=== PATIENT | female | born 2000 | race Caucasian/White ===

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

== ENCOUNTER 2021-07-22 04:36 | Inpatient (IN) | payer OTHER ==
[~2021-07-22 04:36] MED LIST: BUTORPHANOL 1 MG/ML INJ IV PRN; CARBOPROST TROME 250 MCG/ML IM PRN; METHYLERGONOVINE 0.2MG/ML AMP IM PRN; OXYTOCIN/LR 20 UNIT/1,000 ML BAG IV SCH; PROMETHAZINE INJ 25 MG/ML AMP IM PRN; Ringers Lactate 1,000 ML IV PRN; Ringers Lactate 1,000 ML IV SCH
--- OUTSIDE RECORDS SUMMARY | 2021-07-22 04:39 | XMS REPORT | Continuity of Care Document ---
:2000 Author Organization [facility] t Address [address] [place] [address] [address]. [address] [place] [address] Care Team Providers Name Role Phone Marialuisa PEREZ Attending Clinician Unavailable Payers Payer Name Policy Type Policy Number Effective Date Expiration Date S feliciano MEDICAID PENDING PENDING 2020 00:00:00 MEDICAID [facility] [id number] 2020 00:00:00 Problems This patient has no known problems. Allergies, Adverse Reactions, Alerts Allergy Allergy Status Severity Reaction(s) Onset Inactive Treating Comm ents Source Name Type Date Date Clinician NO KNOWN Drug Active Univers ALLERGIE Class ity of S [facility] Medications This patient has no known medications. Procedures This patient has no known procedures. Encounters Start End Encounter Admission Attending Care Care Encounter Source Date/Time Date/Time Type Type Clinicians Facility Department ID 2020-04-09 2020-04-09 Outpatient R [facility] [id number] Univers 13:30:00 13:30:[id number] 2020-04-09 Outpatient R [facility] [id number] Univers 13:30:00 13:30:00 ity [facility] 2020-03-26 2020-03-26 Outpatient R [facility] [id number] Univers 07:45:00 07:45:00 ity [facility] 2020-03-26 2020-03-26 Outpatient R CHRIS, [facility] [id number] Univers 07:45:00 07:45:00 MERLYN itbobbi o f [facility] 2020-03-22 2020-03-22 Outpatient R [facility] [id number] Univers 07:45:00 [facility] 2020-03-[facility] 2020-03-22 Outpatient R CHRIS, [facility] [id number] Univers 07:45:00 07:45:00 MERLYN salvador [facility] 2020-03-16 2020-03-16 Outpatient R CHRIS [facility] [id number] Univers 10:00:00 10:00:00 MERLYN [id number] henok salvador [facility] 2020-03-16 2020-03-16 Outpatient R CHRIS [facility] [id number] Univers 09:30:00 09:30:00 MERLYN whiting [facility] Results This patient has no known results.
[2021-07-22 06:19] VITALS: BMI 28.3
[2021-07-22 06:27] LABS: Absolute Lymphocytes (CBC) 2.9 K/uL (0.7-4.9); Basophils % 0.6 % (0-1.3); Hematocrit 35.8 % (36.0-45.0); Lymphocytes % 31.4 % (15.3-44.8); MPV 8.8 fL (7.6-11.3); RBC Red Blood Cell Count 3.78 M/uL (3.86-4.86)
[2021-07-22 06:37] LABS: Urine Appearance SL CLOUDY (Clear); Urine Bilirubin NEGATIVE (Negative); Urine Color YELLOW (Yellow); Urine Glucose NEGATIVE (Negative); Urine Specific Gravity 1.025 (1.005-1.030)
[2021-07-22 06:38] LABS: Urine Blood TRACE (Negative); Urine Protein NEGATIVE (Negative); Urine Urobilinogen 0.2 mg/dL (0.2-1.0)
[2021-07-22 07:11] LABS: Urine Bacteria 20-50 /HPF (<20); Urine RBC <5 /HPF (NONE SEEN)
[2021-07-22] MEDS ORDERED: BUPIVACAINE 0.25% PF 10 ML VIAL IJ PRN (07:36)
[2021-07-22] MEDS ORDERED: FENTANYL CITR 100 MCG/2 ML IV ONE (07:36)
[2021-07-22] MEDS ORDERED: ROPIVACAINE HCL 0.2% 20ML AMP IV ONE (07:36)
--- NOTE | 2021-07-22 07:55 | PREOPHP ---
Date of Admission: 07/22/2021 Rosa Bravo is a 21-year-old, 2, para 1, 39 weeks 1 day, for elective induction. Rh positi ve. Immune to rubella. Negative strep. Negative COVID. Full preadmission counseling about inducti on pros and cons. Family History: Shows a maternal grandmother with lung cancer. Otherwise, noncontributory. Past Medical History: No serious medical illnesses. Past Surgical History: No previous surgeries. Allergies: NO ALLERGIES. Medications: No medications prior to admission other than vitamins and iron. Social History: Does not smoke. Physical Examination: HEENT: Clear. Pupils equal, round, reactive to light and accommodation. Conjunctivae well perfused . No oral, lingual, or buccal lesions. Chest/Lung: Clear. Heart: Without murmurs, thrills, heaves, or rubs. Breasts: Without masses on previous visits. Abdomen: Term size. Extremities: Clear without edema, cyanosis, or clubbing. The patient is 3.5 cm, 50% effaced, -1 station. Rupture of membranes, clear fluid. Labor talk given , probably will be requesting epidural. Anticipate delivery sometime later today. NIKKIE/YENIFER Voice ID: [id number]
[2021-07-22] MEDS ORDERED: ROPIVACAINE HCL 100 ML EP ONE (09:17)
[2021-07-22] MEDS ORDERED: 0.2% ROPIVACAINE (200 MG/100 ML) BAG EP ONE (09:18)
[2021-07-22] MEDS ORDERED: FENTANYL CITR 100 MCG/2 ML ONE (10:41)
[2021-07-22] MEDS ORDERED: LIDOCAINE 1% MPF 30 ML VIAL ONE (11:04)
--- NOTE | 2021-07-22 11:56 | OP ---
Surgeon: Roberto Pepoles MD Procedure In Detail: A 21-year-old, 2, para 1, 39 weeks 1 day, delivered of a 7-pound 10-oun ce male infant, very short second stage, 5 minutes or so. Apgars 9 and 9. No episiotomy. No lacera tion. During the labor, received epidural anesthesia x2, but was really not very effective. Katherine flores delivery of the placenta, which inspected and noted to be intact and normal. Less than 125 cc bloo d loss. Partial nuchal cord noted at time of delivery. Rh positive, immune to rubella, negative str ep, negative COVID. Tolerated all procedures well. Final Diagnoses: Term intrauterine at 39 weeks 1 day, labor induction, vaginal delivery, e pidural anesthesia-in effective. NIKKIE/YENIFER Voice ID: [id number] Report ID: [id number]
[2021-07-22] MEDS ORDERED: Oxycodone HCl/Acetaminophen 1 TAB TAB PO PRN ×2 (14:11→14:13)
[2021-07-22] MEDS ORDERED: IBUPROFEN 600 MG TAB PO PRN (14:11)
[2021-07-22] MEDS ORDERED: Tdap (Diph,Pertuss(Acell),Tet Vac) 0.5 ML SYR IMVAC ONE (14:11)
[2021-07-23 00:15] LABS: RPR (Rapid Plasma Reagin) NON-REACT (NON-REACT)
[2021-07-23] MEDS ORDERED: Tdap (Diph,Pertuss(Acell),Tet Vac) 0.5 ML SYR IMVAC ONE (11:00)
[2021-07-23 13:10] VITALS: BP 111/70; TEMP 98.1
[2021-07-24 13:28] LABS: HBsAG Nonreactive (Nonreactive)
== END 2021-07-23 13:10 | disposition home or self-care (01) | DRG 807 ==
LOC: 2ND-WC 04:36
PROVIDERS: ADMIT Specialist; ATTEND Specialist
PROC: 10E0XZZ Delivery of Products of Conception, External Approach (ICD-10-PCS; principal; 2021-07-22)
PROC: 10907ZC Drainage of Amniotic Fluid, Therapeutic from Products of Conception, Via Natural or Artificial Opening (ICD-10-PCS; 2021-07-22)
DX: O69.81X0 Labor and delivery complicated by cord around neck, without compression, not applicable or unspecified (principal); Z37.0 Single live birth; Z3A.39 39 weeks gestation of pregnancy
CPT/HCPCS: 36415; 81001; 85025; 86592; 86901; 87340; 90471; 90715; J2210; J2590; J2795; J3010; J7120; U0003

== ENCOUNTER 2022-09-15 04:38 | Inpatient (IN) | payer OTHER ==
--- OUTSIDE RECORDS SUMMARY | 2022-09-15 04:41 | XMS REPORT | Continuity of Care Document ---
:2000 Author Organization [facility] t Address [address] Jimenez [address] [place] [address] Care Team Providers Name Role Phone TREE Attending Clinician Unavailable MERLYN PEREZ Attending Clinician Unavailable TERE Admitting Clinician Unavailable Payers Payer Name Policy Type Policy Number Effective Date Expiration Date S feliciano MEDICAID PENDING PENDING 2020 00:00:00 MEDICAID [place] [id number] 2020 00:00:00 Problems This patient has no known problems. Allergies, Adverse Reactions, Alerts Allergy Allergy Status Severity Reaction(s) Onset Inactive Treating Comm ents Source Name Type Date Date Clinician NO KNOWN Drug Active Univers ALLERGIE Class ity of S [facility] Medications This patient has no known medications. Procedures This patient has no known procedures. Encounters Start End Encounter Admission Attending Care Care Encounter Source Date/Time Date/Time Type Type Clinicians Facility Department ID 2022-03-21 2022-03-21 Outpatient MINDI JEFFERY [id number] 00:00:00 00:00:00 HN [id number] da [facility] 2020-04-09 2020-04-09 Outpatient R [facility] [id number] Univers 13:30:00 13:30:00 ity [facility] 2020-03-26 2020-03-26 Outpatient R CHRIS [facility] [id number] Univers 07:45:00 07:45:00 MERLYN alamo [facility] 2020-03-22 2020-03-22 Outpatient R CHRIS [facility] [id number] Univers 07:45:00 07:45:00 MERLYN salvador [facility] 2020-03-16 2020-03-16 Outpatient Lacey PEREZ [facility] [id number] Univers 09:30:00 09:30:00 MERLYN salvador [facility] Results This patient has no known results.
[2022-09-15 05:39] VITALS: BMI 28.1
[2022-09-15 06:07] LABS: Specific Gravity 1.018 (1.005-1.030); Urine Bacteria None Seen /HPF (<20); Urine Bilirubin NEGATIVE (Negative); Urine Blood 2+ (Negative); Urine Clarity Turbid (Clear); Urine Color Light-Yellow (Yellow); Urine Glucose NEGATIVE (Negative); Urine Mucus Slight /HPF (None Seen); Urine Protein TRACE (Negative); Urine Urobilinogen Normal (Normal)
[2022-09-15] MEDS ORDERED: FENTANYL CITR 100 MCG/2 ML IV PRN (06:27)
[2022-09-15] MEDS ORDERED: ROPIVACAINE HCL 0.2% 20ML AMP EP PRN (06:27)
[2022-09-15] MEDS ORDERED: FENTANYL/BUPIVACAINE/NS/PF 200 MCG/100 ML BAG EP PRN (06:27)
[2022-09-15 06:30] LABS: Absolute Lymphocytes (CBC) 2.8 K/uL (0.7-4.9); Lymphocytes % 27.2 % (15.3-44.8); MCV 93.3 fL (80-100); MPV 8.1 fL (7.6-11.3); RBC Red Blood Cell Count 3.65 M/uL (3.86-4.86)
[2022-09-15 07:03] LABS: Hepatitis B surface AG Interp. Nonreactive (Nonreactive)
[2022-09-15] MEDS ORDERED: LIDOCAINE 1% MPF 30 ML VIAL ONE (07:25)
[2022-09-15] MEDS ORDERED: ROPIVACAINE HCL 20 ML ONE (08:14)
--- NOTE | 2022-09-15 08:39 | PREOPHP ---
Date of Admission: 09/15/2022 History Of Present Illness: Rosa Kelley is a 22-year-old, 3, para 2, at 39 weeks and 1 day for induction. Pros and cons of this thoroughly discussed in the office several times prior to admis zoe. Family History: Maternal grandmother with lung cancer. Otherwise family history is noncontributory. Past Medical History: No serious medical illnesses. Past Surgical History: No previous surgeries. Allergies: NO ALLERGIES. Medications: vitamins prior to admission. Social History: Does not smoke. Physical Examination: HEENT: Clear. Pupils are equal, round, reactive to light and accommodation. Conjunctivae well perf used. No oral, lingual, buccal lesions. Chest and Lungs: Clear. Heart: Without murmurs, thrills, heaves, or rubs. Breasts: Without masses on previous visits. Abdomen: Term size. Extremities: Clear without edema, cyanosis, or clubbing. Assessment And Plan: The patient is 4.5, 70% effaced, vertex, -1 station, clear fluid, on rupture of membranes. FHTs normal, reactive. She is Rh positive, immune to rubella, and negative strep. She has had epidurals with her other deliveries. I have told her that she can have an epidural basically any time from this point forward, but right now she wishes to wait. Full labor talk given. Anticipate delivery relatively soon. NIKKIE/YENIFER Voice ID: [id number]
[2022-09-15] MEDS ORDERED: BISACODYL 10 MG RECTAL SUPP RC PRN (09:22)
[2022-09-15] MEDS ORDERED: Oxycodone HCl/Acetaminophen 1 TAB TAB PO PRN ×2 (09:22)
[2022-09-15] MEDS ORDERED: DOCUSATE NA/SENNA CONC 1 TAB PO PRN (09:22)
[2022-09-15] MEDS ORDERED: IBUPROFEN 600 MG TAB PO PRN (09:22)
[2022-09-15] MEDS ORDERED: DIPHENHYDRAMINE 25 MG TAB/CAP PO PRN (09:22)
[2022-09-15] MEDS ORDERED: ACETAMINOPHEN 500 MG TAB PO PRN (09:22)
[2022-09-15] MEDS ORDERED: OXYTOCIN/LR 20 UNIT/1,000 ML BAG IV SCH (10:00)
--- NOTE | 2022-09-15 18:00 | OP ---
Surgeon: Roberto Peoples MD Procedure In Detail: Rosa Bravo is a 22-year-old, 3, para 2, 39 weeks 1 day, followed ant epartum without complications, admitted for induction, 3.5 to 4 cm when first examined this morning, 70% effaced, vertex -1 station. Rupture of membranes, clear fluid. Michelle regularly. Rh posit govind, immune to rubella, negative strep. Progressed rapidly at approximately 5 cm. Requested and rec eived epidural anesthesia. Went to complete within 2 hours or less rupture of membranes. Second sta ge consisted of 1 good set of pushes. She has delivered of a 6-pound 15-ounce female. Harness type cord. No restrictions. Apgars 9 and 9. No episiotomy. No laceration. Seay delivery of the plac enta, which was inspected and noted be heavily calcified, but otherwise normal. Uterus contracted do wn well. Less than 250 cc blood loss. The patient tolerated all procedures well. Final Diagnoses: Term intrauterine 39 weeks 1 day, labor induction, vaginal delivery, epid ural anesthesia. EMILIOC/MODL Voice ID: [id number] Report ID: [id number]
[2022-09-16 02:07] LABS: RPR (Rapid Plasma Reagin) NON-REACT (NON-REACT)
--- NOTE | 2022-09-16 07:27 | DS ---
Hospital Course: A 22-year-old, 3, para 2, at 39 weeks 1 day, delivered of a 6-pound 15-ounc e female, Apgars 9 and 9, epidural anesthesia. No episiotomy. No lacerations. Seay delivery of t he placenta. Placenta inspected and noted to be intact and normal. Less than 250 cc blood loss. Rh positive, immune to Rubella. Negative strep screen. ; afebrile, ambulating, voiding. Lo jose is normal. No post epidural problems. She is having mild cramping. Full post dismissal instru ctions given. She will see me in the office in 2 weeks instead of the normal 6 because of the hospit al situation. Tdap shot again offered, which has been offered during the as well. Final Diagnoses: Term intrauterine at 39 weeks and 1 day, labor induction, vaginal deliver y, epidural anesthesia. Tdap offered. NIKKIE/YENIFER Voice ID: [id number] Report ID: [id number]
[2022-09-16 07:33] VITALS: BP 104/65; TEMP 97.4
== END 2022-09-16 11:30 | disposition home or self-care (01) | DRG 807 ==
LOC: 2ND-WC 04:38 → EDSTATUS 22:04
PROVIDERS: ADMIT Specialist; ATTEND Specialist
PROC: 10E0XZZ Delivery of Products of Conception, External Approach (ICD-10-PCS; principal; 2022-09-15)
PROC: 10907ZC Drainage of Amniotic Fluid, Therapeutic from Products of Conception, Via Natural or Artificial Opening (ICD-10-PCS; 2022-09-15)
PROC: 3E033VJ Introduction of Other Hormone into Peripheral Vein, Percutaneous Approach (ICD-10-PCS; 2022-09-15)
DX: O80 Encounter for full-term uncomplicated delivery (principal); Z37.0 Single live birth; Z3A.39 39 weeks gestation of pregnancy; Z20.822 Contact with and (suspected) exposure to COVID-19
CPT/HCPCS: 36415; 81001; 85025; 86592; 86901; 87086; 87088; 87340; J2001; J2210; J2590; J3010; J7120; U0003

== ENCOUNTER 2023-06-27 13:45 | Emergency (ER) | payer SELFPAY ==
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
[2023-06-27] MEDS ORDERED: LIDOCAINE 1% MPF 5 ML VIAL ONE (14:24)
--- NOTE | 2023-06-27 15:03 | EDPHYS ---
Physician Documentation [facility] Name: Rosa Bravo Age: 23 yrs Sex: Female : 2000 Arrival Date: 06/27/2023 Time: 13:45 Bed 9 Private MD: ED Physician Duy Rodriguez HPI: 06/27 14:58 This 23 yrs old Female presents to ER via Ambulatory with complaints of Breast Lump. rn 14:58 The patient presents with an abscess of the chest, the patient presents with a swollen rn area of the chest. Description: erythematous, fluctuant, swollen, warm. Onset: The symptoms/episode began/occurred 2 day(s) ago. Possible cause(s): unknown. Associated signs and symptoms: Pertinent positives: erythema, swelling, Pertinent negatives: fever. Modifying factors: the symptoms are alleviated by nothing, the symptoms are aggravated by touching. Severity of symptoms: At their worst the symptoms were moderate, in the emergency department the symptoms are unchanged. The patient has experienced a previous episode. Patient reports left breast swelling and abscess. Has had a cyst at that site for about a year and over the last 2 days is now red and inflamed. Also tender. No drainage. No fever. No trauma. Has had abscesses before.. 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 - Social history:: Smoking status: Patient denies any tobacco usage or history of. - Family history:: not pertinent. - Hospitalizations: : No recent hospitalization is reported. ROS: 14:58 Constitutional: Negative for fever, chills, and weight loss, Skin: Positive for left rn breast abscess Exam: 14:58 Constitutional: This is a well developed, well nourished patient who is awake, alert, rn and in no acute distress. Chest/axilla: Left medial breast with 2 cm area of fluctuance and induration, tender, mobile and superficial. No ulcerations or necrosis noted Vital Signs: 14:02 BP 123 / 75; Pulse 88; Resp 20; Temp 98; Pulse Ox 100% on R/A; Weight 63.5 kg; Height 5 iw ft. 2 in. ; Pain 8/10; 14:02 Body Mass Index 25.61 (63.50 kg, 157.48 cm) iw 14:02 Pain Scale: Adult iw Procedures: 14:58 I \T\ D: Incision and drainage was performed for an abscess of the left Breast Prepped rn with Betadine, Anesthetized with 2 ml's 1% Lidocaine. Incised with #11 blade. Drained small amount purulent fluid. serosanguinous fluid. Packed with iodoform gauze, Dressing: sterile 4x4 gauze, the patient tolerated the procedure well. MDM: 13:47 Patient medically screened. rn 14:58 Differential diagnosis: abscess. Data reviewed: vital signs, nurses notes, and as a rn result, I will discharge patient. Counseling: I had a detailed discussion with the patient and/or guardian regarding the historical points, exam findings, and any diagnostic results supporting the discharge/admit diagnosis, the need for outpatient follow up, to return to the emergency department if symptoms worsen or persist or if there are any questions or concerns that arise at home. Response to treatment: the patient's symptoms have markedly improved after treatment, and as a result, I will discharge patient. Special discussion: I discussed with the patient/guardian in detail that at this point there is no indication for admission to the hospital. It is understood, however, that if the symptoms persist or worsen the patient needs to return immediately for re-evaluation. Based on the history and exam findings, there is no indication for further emergent testing or inpatient evaluation. I discussed with the patient/guardian the need to see the general surgeon for further evaluation of the symptoms. 06/27 14:01 Order name: Suture Tray at Bedside; Complete Time: 14:46 rn 06/27 14:01 Order name: Incision \T\ Drainage Setup; Complete Time: 14:46 rn Administered Medications: 15:07 Drug: Lidocaine Infiltration (1 %) 1 vials 20 ml Infiltration once; to bedside Volume: iw 20 ml; Route: Infiltration; Disposition Summary: 06/27/23 15:02 Discharge Ordered Notes: Location: Home rn Problem: new rn Symptoms: have improved rn Condition: Stable rn Diagnosis - Left breast abscess/infected cyst rn Followup: rn - With: Omar Colby MD - When: As needed - Reason: Recheck today's complaints, Re-evaluation by your physician Discharge Instructions: - Discharge Summary Sheet rn - Skin Abscess rn - Incision and Drainage, Care After rn Forms: - Medication Reconciliation Form rn - Thank You Letter rn - Antibiotic management nurse rn - Prescription Opioid Use rn - Patient Portal Instructions rn - Leadership Thank You Letter rn Prescriptions: - Clindamycin HCl 300 mg Oral Capsule - take 1 capsule ORAL route every 6 hours for 10 days; 40 capsule; Refills: 0, rn Product Selection Permitted Signatures: Caren Goodwin RN RN iw Duy Rodriguez MD MD rn
--- NOTE | 2023-06-27 15:03 | ER ---
Nurse's Notes [facility] Name: Rosa Bravo Age: 23 yrs Sex: Female : 2000 Arrival Date: 06/27/2023 Time: 13:45 Bed 9 Private MD: Diagnosis: Left breast abscess/infected cyst Presentation: 06/27 14:02 Chief complaint: Patient states: lump on breast for one year/ pain worse for the last 3 iw days. Coronavirus screen: At this time, the client does not indicate any symptoms associated with coronavirus-19. Ebola Screen: Patient negative for fever greater than or equal to 101.5 degrees Fahrenheit, and additional compatible Ebola Virus Disease symptoms Patient denies exposure to infectious person. Patient denies travel to an Ebola-affected area in the 21 days before illness onset. No symptoms or risks identified at this time. Onset of symptoms is unknown. Onset of symptoms. Transition of care: patient was not received from another setting of care. 14:02 Method Of Arrival: Ambulatory iw 14:02 Acuity: ANGELA 4 iw 15:00 Initial Sepsis Screen: Does the patient meet any 2 criteria? No. Patient's initial iw sepsis screen is negative. Does the patient have a suspected source of infection? No. Patient's initial sepsis screen is negative. 15:09 Risk Assessment: Do you want to hurt yourself or someone else? Patient reports no iw desire to harm self or others. 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 - Social history:: Smoking status: Patient denies any tobacco usage or history of. - Family history:: not pertinent. - Hospitalizations: : No recent hospitalization is reported. Screenin:08 [facility] ED Fall Risk Assessment (Adult) Score/Fall Risk Level 0 - 2 = Low Risk. Abuse iw screen: Denies threats or abuse. Denies injuries from another. Nutritional screening: No deficits noted. Tuberculosis screening: No symptoms or risk factors identified. Assessment: 15:07 General: Appears in no apparent distress. Behavior is calm, cooperative. iw 15:08 Pain: Complains of pain in left breast. Neuro: Level of Consciousness is awake, alert, iw obeys commands, Oriented to person, place, time, situation. Cardiovascular: Respiratory: Respiratory effort is even, unlabored, Respiratory pattern is regular, symmetrical. Vital Signs: 14:02 BP 123 / 75; Pulse 88; Resp 20; Temp 98; Pulse Ox 100% on R/A; Weight 63.5 kg; Height 5 iw ft. 2 in. ; Pain 8/10; 14:02 Body Mass Index 25.61 (63.50 kg, 157.48 cm) iw 14:02 Pain Scale: Adult iw ED Course: 13:46 Patient arrived in ED. rg4 13:47 Duy Rodriguez MD is Attending Physician. rn 14:05 Triage completed. iw 14:07 Caren Goodwin RN is Primary Nurse. iw 14:46 Assist provider with I \T\ D: of an abscess on left Set up I\T\D tray. Performed by Duy Rodriguez MD Wound packed. 4X4s, Dressing with 4X4s, tape Patient tolerated well. chaperoned Dr. Rodriguez with breast exam. 15:00 Arm band placed on. iw 15:01 Omar Colby MD is Referral Physician. rn 15:07 Patient did not have IV access during this emergency room visit. iw 15:07 Patient has correct armband on for positive identification. Provided Education on: . iw Administered Medications: 15:07 Drug: Lidocaine Infiltration (1 %) 1 vials 20 ml Infiltration once; to bedside Volume: iw 20 ml; Route: Infiltration; Medication: 15:07 VIS not applicable for this client. iw Outcome: 15:02 Discharge ordered by . rn 15:08 Discharged to home ambulatory, iw 15:08 Condition: good 15:08 Discharge instructions given to patient, Instructed on discharge instructions, follow up and referral plans. medication usage, Demonstrated understanding of instructions, follow-up care, medications, wound care, Prescriptions given X 1, 15:09 Patient left the ED. iw Signatures: Caren Goodwin RN RN iw Nieto, Roman, MD MD rn Garcia, Rubi rg4 Yohana Galindo
[2023-06-27 15:14] VITALS: BP 123/75; TEMP 98; O2SAT 100
== END 2023-06-27 15:09 | disposition home or self-care (01) ==
LOC: ER 13:45
PROC: 0H95XZZ Drainage of Chest Skin, External Approach (ICD-10-PCS; principal; 2023-06-27)
DX: N61.1 Abscess of the breast and nipple (principal)
CPT/HCPCS: 99283; J2001

== ENCOUNTER → 2023-08-12 | Emergency (ER) | payer SELFPAY ==
[~2023-08-12] MED LIST changes: -BUTORPHANOL 1 MG/ML INJ IV PRN; -CARBOPROST TROME 250 MCG/ML IM PRN; -METHYLERGONOVINE 0.2MG/ML AMP IM PRN; +NA CHLORIDE 0.9% 1,000 ML ONE; -OXYTOCIN/LR 20 UNIT/1,000 ML BAG IV SCH; -PROMETHAZINE INJ 25 MG/ML AMP IM PRN; -Ringers Lactate 1,000 ML IV PRN; -Ringers Lactate 1,000 ML IV SCH
--- OUTSIDE RECORDS SUMMARY | 2023-08-12 11:51 | XMS REPORT | Continuity of Care Document ---
Author Name Unknown Address [address] [place] [address] [employer] Address [address] [place] [address] Care Team Providers Care Elevators Inspector Name Role Phone TREE Attending Clinician Unavailable TREE Admitting Clinician Unavailable Encounters Start Date/Time End Date/Time Encounter Type Admission Type Attending Clinicians Care Facility Care Department Encounter ID Source 2022-03-21 00:00:00 2022-03-21 00:00:00 Outpatient MINDI HANNON NEINEZ [facility] [id number] leggett [facility] Program
[2023-08-12 13:08] LABS: Absolute Lymphocytes (CBC) 1.6 K/uL (0.7-4.9); Hematocrit 44.1 % (36.0-45.0); Lymphocytes % 15.3 % (15.3-44.8); MCV 93.8 fL (80-100); MPV 7.2 fL (7.6-11.3); Platelets 296 thou/uL (152-406)
--- NOTE | 2023-08-12 13:56 | ER ---
Nurse's Notes [facility] Name: Rosa Bravo Age: 23 yrs Sex: Female : 2000 Arrival Date: 08/12/2023 Time: 11:47 Bed 12 Private MD: Diagnosis: Nausea with vomiting, unspecified;Diarrhea, unspecified Presentation: 08/12 12:04 Chief complaint: Patient states: DIZZINESS x1 WK, N/V/D x1 DAY. Coronavirus screen: At bp this time, the client does not indicate any symptoms associated with coronavirus-19. Ebola Screen: No symptoms or risks identified at this time. Initial Sepsis Screen: Does the patient meet any 2 criteria? No. Patient's initial sepsis screen is negative. Does the patient have a suspected source of infection? No. Patient's initial sepsis screen is negative. Risk Assessment: Do you want to hurt yourself or someone else? Patient reports no desire to harm self or others. Onset of symptoms is unknown. 12:04 Method Of Arrival: Ambulatory bp 12:04 Acuity: ANGELA 4 bp Triage Assessment: 13:00 General: Appears in no apparent distress. Behavior is calm, cooperative, appropriate ll1 for age. Pain: Denies pain. Neuro: Reports dizziness. GI: Reports diarrhea, nausea, vomiting. MANAGER OF COMPLIANCE: 13:09 LMP N/A - control method, Not ll1 Historical: - Allergies: 12:07 No Known Allergies; bp - Home Meds: 12:07 None [Active]; bp - PMHx: 12:07 None; bp - Immunization history:: Adult Immunizations up to date. - Social history:: Smoking status: Patient denies any tobacco usage or history of. Screenin:58 [facility] ED Fall Risk Assessment (Adult) History of falling in the last 3 months, ld1 including since admission No falls in past 3 months (0 pts). Abuse screen: Denies threats or abuse. Denies injuries from another. Nutritional screening: No deficits noted. Tuberculosis screening: No symptoms or risk factors identified. Assessment: 13:02 Reassessment: No changes from previously documented assessment. Patient and/or family ll1 updated on plan of care and expected duration. Pain level reassessed. 14:05 Reassessment: No changes from previously documented assessment. Patient and/or family ll1 updated on plan of care and expected duration. Pain level reassessed. Patient is alert, oriented x 3, equal unlabored respirations, skin warm/dry/pink. Patient states feeling better. 14:08 GI: Abdomen is flat. ll1 Vital Signs: 12:04 BP 118 / 77; Pulse 93; Resp 18; Temp 98.5; Pulse Ox 100% ; Weight 67.59 kg; Height 5 bp ft. 2 in. ; 14:08 BP 106 / 62; Pulse 65; Resp 16; Pulse Ox 100% ; ll1 12:04 Body Mass Index 27.25 (67.59 kg, 157.48 cm) bp ED Course: 11:49 Patient arrived in ED. rg4 11:54 Robbin Weathers DO is Attending Physician. ms3 12:07 Triage completed. bp 12:07 Arm band placed on. bp 12:53 Flu Sent. ll1 12:58 Alysia Weathers, RN is Primary Nurse. ld1 12:58 Patient has correct armband on for positive identification. ld1 12:58 Inserted saline lock: 22 gauge in right antecubital area, using aseptic technique. ld1 Blood collected. 12:58 BMP Sent. ll1 12:58 CBC with Diff Sent. ll1 13:09 Provided Education on: ER process and procedures. ll1 13:09 No provider procedures requiring assistance completed. ll1 13:54 Skip Agee DO is Referral Physician. ms3 14:08 IV discontinued, intact, bleeding controlled, No redness/swelling at site. Pressure ll1 dressing applied. Administered Medications: 12:58 Drug: NS 0.9% IV 1000 ml IV at 1 bolus Per protocol; 1000 mL bolus Route: IV; Rate: 1 ld1 bolus; Site: right antecubital; 14:00 Follow up: Response: No adverse reaction; IV Status: Completed infusion; IV Intake: ll1 1000ml Medication: 13:09 VIS not applicable for this client. ll1 Intake: 14:00 IV: 1000ml; Total: 1000ml. ll1 Outcome: 13:55 Discharge ordered by . ms3 14:08 Patient left the ED. ld1 14:08 Discharged to home ambulatory, ll1 14:08 Condition: stable 14:08 Discharge instructions given to patient, Instructed on discharge instructions, follow up and referral plans. medication usage, Demonstrated understanding of instructions, follow-up care, medications, Prescriptions given X 1, Signatures: Carin Dunlap rg4 Kelvin Torres RN RN bp Latha Ontiveros, AMANDA RN ll1 Robbin Weathers DO DO ms3 Alysia Weathers, AMANDA RN ld1 Corrections: (The following items were deleted from the chart) 13:08 12:05 General: Appears in no apparent distress. Behavior is calm, cooperative, 1 appropriate for age, 1 13: 12:05 Pain: Denies pain. [place] [id number] : 12:05 GI: Reports diarrhea, nausea, vomiting, [place] [id number] : 12:05 General: Appears in no apparent distress. Behavior is calm, cooperative, 1 appropriate for age, 1 13: 12:05 Neuro: Reports dizziness, [place] [id number]
--- NOTE | 2023-08-12 13:56 | EDPHYS ---
Physician Documentation [facility] Name: Rosa Bravo Age: 23 yrs Sex: Female : 2000 Arrival Date: 08/12/2023 Time: 11:47 Bed 12 Private MD: ED Physician Robbin Weathers HPI: 08/12 12:37 This 23 yrs old Female presents to ER via Ambulatory with complaints of Dizziness, ms3 Vomiting/Diarrhea, Flu Symptoms. 12:37 23-year-old female with no past medical history presents to the emergency department ms3 for vomiting x 2, diarrhea x 2 that began at 9 AM after drinking a 5-hour energy drink. Patient denies pain at this time. Patient denies any alleviating or inciting factors. RADIO PERSONALITY: 13:09 LMP N/A - control method, Not ll1 Historical: - Allergies: 12:07 No Known Allergies; bp - Home Meds: 12:07 None [Active]; bp - PMHx: 12:07 None; bp - Immunization history:: Adult Immunizations up to date. - Social history:: Smoking status: Patient denies any tobacco usage or history of. ROS: 12:37 Constitutional: Negative for fever, and chills. Neck: Negative for injury, pain, and ms3 swelling, Cardiovascular: Negative for chest pain, and palpitations. Respiratory: Negative for shortness of breath, cough, wheezing, and pleuritic chest pain, 12:37 MS/Extremity: Negative for injury and deformity, Skin: Negative for injury, rash, and discoloration, 12:37 Abdomen/GI: Positive for nausea, vomiting, and diarrhea, 12:37 All other systems are negative, Exam: 12:37 Constitutional: This is a well developed, well nourished patient who is awake, alert, ms3 and in no acute distress. Head/Face: Normocephalic, atraumatic. Neck: Trachea midline, no cervical lymphadenopathy. Supple, full range of motion without nuchal rigidity, or vertebral point tenderness. No Meningismus. Chest/axilla: Normal chest wall appearance and motion. Nontender with no deformity. Cardiovascular: Regular rate and rhythm with a normal S1 and S2. No gallops, murmurs, or rubs. Normal PMI, no JVD. No pulse deficits. Respiratory: Lungs have equal breath sounds bilaterally, clear to auscultation and percussion. No rales, rhonchi or wheezes noted. No increased work of breathing, no retractions or nasal flaring. 12:37 Skin: Warm, dry with normal turgor. Normal color with no rashes, no lesions, and no evidence of cellulitis. MS/ Extremity: Pulses equal, no cyanosis. Neurovascular intact. Full, normal range of motion. 12:37 Abdomen/GI: Inspection: abdomen appears normal, Bowel sounds: normal, Palpation: abdomen is soft and non-tender, Vital Signs: 12:04 BP 118 / 77; Pulse 93; Resp 18; Temp 98.5; Pulse Ox 100% ; Weight 67.59 kg; Height 5 bp ft. 2 in. ; 14:08 BP 106 / 62; Pulse 65; Resp 16; Pulse Ox 100% ; ll1 12:04 Body Mass Index 27.25 (67.59 kg, 157.48 cm) bp MDM: 12:35 Patient medically screened. ms3 12:37 Differential diagnosis: Flu versus dehydration versus gastroenteritis. ms3 13:57 Data reviewed: vital signs, nurses notes, lab test result(s), and as a result, I will ms3 discharge patient. I considered the following discharge prescriptions or medication management in the emergency department Medications were administered in the Emergency Department. See MAR. Counseling: I had a detailed discussion with the patient and/or guardian regarding the historical points, exam findings, and any diagnostic results supporting the discharge/admit diagnosis, lab results, the need for outpatient follow up, to return to the emergency department if symptoms worsen or persist or if there are any questions or concerns that arise at home. Special discussion: I discussed with the patient/guardian in detail that at this point there is no indication for admission to the hospital. It is understood, however, that if the symptoms persist or worsen the patient needs to return immediately for re-evaluation. ED course: Discussed labs with patient. Patient is alert and oriented x 4, no apparent distress, nontoxic-appearing, ambulatory in emergency department. Patient to follow-up with primary care physician 2 to 3 days. Patient understands and agrees with plan. All questions were answered. Return precautions discussed include worsening symptoms, or any other concerns. 08/12 12:34 Order name: CBC with Diff; Complete Time: 13:35 ms3 08/12 12:34 Order name: BMP; Complete Time: 13:35 ms3 08/12 12:34 Order name: Flu; Complete Time: 13:35 ms3 Administered Medications: 12:58 Drug: NS 0.9% IV 1000 ml IV at 1 bolus Per protocol; 1000 mL bolus Route: IV; Rate: 1 ld1 bolus; Site: right antecubital; 14:00 Follow up: Response: No adverse reaction; IV Status: Completed infusion; IV Intake: ll1 1000ml Disposition Summary: 08/12/23 13:55 Discharge Ordered Notes: Location: Home ms3 Condition: Stable ms3 Diagnosis - Nausea with vomiting, unspecified ms3 - Diarrhea, unspecified ms3 Followup: ms3 - With: Skip Agee DO - When: 2 - 3 days - Reason: Recheck today's complaints Discharge Instructions: - Discharge Summary Sheet ms3 - Diarrhea, Adult ms3 - Nausea and Vomiting, Adult ms3 Forms: - Medication Reconciliation Form ms3 - Thank You Letter ms3 - Antibiotic Education ms3 - Prescription Opioid Use ms3 - Patient Portal Instructions ms3 - Leadership Thank You Letter ms3 - Work release form ld1 Prescriptions: - ondansetron 4 mg Oral Tablet,disintegrating - take 1 tablet ORAL route every 8 hours as needed for nausea and vomiting; 15 ms3 tablet; Refills: 0, Product Selection Permitted Signatures: Dispatcher [employer] Kelvin Iglesias RN Robbin López DO DO ms3 Alysia Weathers RN RN ld1 Latha Ontiveros RN ll1
[2023-08-12 14:17] VITALS: BP 118/77; TEMP 98.5; O2SAT 100
== END ==
LOC: ER 11:47
DX: R11.2 Nausea with vomiting, unspecified (principal); R19.7 Diarrhea, unspecified
CPT/HCPCS: 36415; 80048; 85025; 87804; 96360; 99284; J7030